=== PATIENT | female | born 1930 | race African-American/Black ===

== ENCOUNTER 2021-04-09 10:23 | Inpatient (IN) | payer MEDICARE, MEDICAID ==
[~2021-04-09] VITALS: Ht 162.6 cm; Wt 59.9 kg
[~2021-04-09 10:23] MED LIST: ATOR40TA70; CARV25TA47; CLOP-31; ESCI10TA; EZET10TA13; FOLI-43; METF-414 PO; OLME1TAB19 PO
[2021-04-09] MEDS ORDERED: ACETAMINOPHEN 325MG TABLET PO ONE (11:15)
[2021-04-09 11:30] LABS: BASOPHILS % 0.8 % (0.0-2.0); EOSINOPHILS % 5.2 % (0.0-5.0); HEMATOCRIT. 32.9 % (36.0-48.0); LYMPHOCYTES % 31.9 % (20.0-50.0); MEAN CORPUSCULAR VOLUME 83.9 fL (81.0-99.0); MEAN PLATELET VOLUME 8.7 fl (7.4-10.4); MONOCYTES % 7.7 % (2.0-8.0); NEUTROPHILS % 54.4 % (40.0-76.0); PLATELET 267 x1000/uL (130-400); RED BLOOD CELL COUNT 3.92 mill/uL (4.2-5.4); RED CELL DISTRIBUTION WIDTH 15.9 % (11.6-14.6)
[2021-04-09] MEDS ORDERED: MORPHINE SULFATE 2 MG/ML CPJ (NOT FOR IM USE) IV ONE (11:30)
[2021-04-09 11:35] LABS: CHLORIDE 105 mEq/L (98-107)
[2021-04-09 11:39] LABS: PROTHROMBIN TIME 10.8 sec (9.6-11.0)
[2021-04-09] MEDS ORDERED: SODIUM CHLORIDE 0.9% 1,000 ML IV NR (11:45)
[2021-04-09 14:10] LABS: CLARITY URINE CLOUDY (CLEAR); COLOR URINE YELLOW (YELLOW); KETONES URINE TRACE (NEGATIVE); LEUKOCYTE ESTERASE URINE NEGATIVE (NEGATIVE); NITRITE URINE NEGATIVE (NEGATIVE); OCCULT BLOOD URINE 2+ (NEGATIVE); PH URINE 8.5 (4.5-8.0); PROTEIN URINE 1+ (NEGATIVE); SPECIFIC GRAVITY URINE 1.011 (1.005-1.030); UROBILINOGEN URINE 0.2 E.U./dL (0.2-1.0)
[2021-04-09] MEDS ORDERED: HYDROCODONE/APAP 7.5/325MG 1 TAB TABLET PO PRN (16:00)
[2021-04-09] MEDS ORDERED: NALOXONE HCL 0.4MG/ML VIAL IV PRN (16:30)
[2021-04-09] MEDS: AMLODIPINE 10MG TABLET PO SCH (16:30)
[2021-04-09] MEDS ORDERED: ATORVASTATIN CALCIUM 20MG TABLET PO SCH (21:00)
[2021-04-09] MEDS ORDERED: MORPHINE SULFATE 2 MG/ML CPJ (NOT FOR IM USE) IV PRN (22:15)
[2021-04-09 22:25] VITALS: BP 173/83
[2021-04-10] VITALS (7 sets, daily range): BP systolic 123–193; BP diastolic 83–97
[2021-04-10] MEDS ORDERED: AMLO5TAB88 PO (00:04)
[2021-04-10] MEDS ORDERED: DONE10TA36 PO (00:04)
[2021-04-10] MEDS ORDERED: SITA100T11 PO (00:04)
[2021-04-10] MEDS ORDERED: XAR15 PO (00:04)
[2021-04-10] MEDS ORDERED: ASPI-1406 PO (00:04)
[2021-04-10] MEDS ORDERED: HYDR12.54 PO (00:04)
[2021-04-10] MEDS ORDERED: FERR325T6 PO (00:04)
[2021-04-10] MEDS ORDERED: CARV3.1242 PO (00:04)
[2021-04-10] MEDS ORDERED: SACU1TAB PO (00:04)
[2021-04-10] MEDS ORDERED: METF-414 PO (00:04)
[2021-04-10] MEDS ORDERED: ATOR10TA69 PO (00:04)
[2021-04-10] MEDS: CARVEDILOL 3.125 MG TABLET PO SCH ×3 (00:12→21:19)
[2021-04-10] MEDS: CLONIDINE 0.1MG TABLET PO PRN ×2 (00:13→23:07)
[2021-04-10 06:59] LABS: BASOPHILS % 0.4 % (0.0-2.0); EOSINOPHILS % 1.3 % (0.0-5.0); HEMATOCRIT. 32.7 % (36.0-48.0); HEMOGLOBIN. 10.8 g/dL (12.0-16.0); LYMPHOCYTES % 17.8 % (20.0-50.0); MEAN CORPUSCULAR HEMOGLOBIN 27.8 pg (28.0-32.0); MEAN CORPUSCULAR VOLUME 84.5 fL (81.0-99.0); MONOCYTES % 10.7 % (2.0-8.0); NEUTROPHILS % 69.8 % (40.0-76.0); PLATELET 244 x1000/uL (130-400); RED BLOOD CELL COUNT 3.87 mill/uL (4.2-5.4); RED CELL DISTRIBUTION WIDTH 15.9 % (11.6-14.6)
[2021-04-10 07:07] LABS: CHLORIDE 107 mEq/L (98-107)
[2021-04-10] MEDS: AMLODIPINE 10MG TABLET PO SCH (09:00)
[2021-04-10] MEDS: HYDROCHLOROTHIAZIDE 12.5MG CAPSULE PO SCH (09:00)
[2021-04-10] MEDS: ATORVASTATIN CALCIUM 20MG TABLET PO SCH (21:19)
[2021-04-11] VITALS: BP 148/82
[2021-04-11 04:00] VITALS: BP 171/99
[2021-04-11] MEDS: CLONIDINE 0.1MG TABLET PO PRN (04:58)
[2021-04-11] MEDS ORDERED: VANCOMYCIN HCL 1 GM/VIAL ONE (07:06)
[2021-04-11] MEDS ORDERED: BACITRACIN 15GM TUBE TOP ONE (07:06)
[2021-04-11] MEDS ORDERED: POLYMYXIN B SULFATE 500000 UNITS/VIAL ONE (07:07)
[2021-04-11] MEDS ORDERED: LIDOCAINE HCL/EPINEPHRINE 1%-EPI 1:100,000 20 ML VIAL ONE (07:07)
[2021-04-11 07:24] LABS: CHLORIDE 110 mEq/L (98-107)
[2021-04-11 07:30] LABS: BASOPHILS % 0.4 % (0.0-2.0); HEMATOCRIT. 29.7 % (36.0-48.0); LYMPHOCYTES % 12.2 % (20.0-50.0); MEAN CORPUSCULAR HEMOGLOBIN 28.3 pg (28.0-32.0); MEAN CORPUSCULAR VOLUME 84.4 fL (81.0-99.0); MEAN PLATELET VOLUME 9.1 fl (7.4-10.4); MONOCYTES % 11.5 % (2.0-8.0); NEUTROPHILS % 73.9 % (40.0-76.0); PLATELET 214 x1000/uL (130-400); RED BLOOD CELL COUNT 3.52 mill/uL (4.2-5.4); RED CELL DISTRIBUTION WIDTH 15.6 % (11.6-14.6)
[2021-04-11] MEDS ORDERED: SUCCINYLCHOLINE CHLORIDE 200MG/10ML IV ONE (07:43)
[2021-04-11] MEDS ORDERED: ONDANSETRON HCL 4MG/2ML INJ ONE (07:43)
[2021-04-11] MEDS ORDERED: GLYCOPYRROLATE 0.2 MG/ML 2ML VIAL ONE (07:43)
[2021-04-11] MEDS ORDERED: PROPOFOL 200MG/20ML VIAL IV ONE (07:43)
[2021-04-11] MEDS ORDERED: METOCLOPRAMIDE HCL 10MG/2ML VIAL ONE (07:43)
[2021-04-11] MEDS ORDERED: MIDAZOLAM HCL 2 MG/2 ML VIAL ONE (07:43)
[2021-04-11] MEDS ORDERED: FENTANYL CITRATE/PF 50MCG/ML 2ML VIAL ONE (07:43)
[2021-04-11] MEDS ORDERED: PHENYLEPHRINE HCL 10 MG/ML 1ML (IV VIAL) IV ONE (08:10)
[2021-04-11] MEDS ORDERED: MEPERIDINE HCL/PF 25MG/ML CPJ IV PRN (08:45)
[2021-04-11] MEDS ORDERED: HYDROMORPHONE HCL/PF 2MG/ML CPJ IV PRN (08:45)
[2021-04-11] MEDS ORDERED: MORPHINE SULFATE 2 MG/ML CPJ (NOT FOR IM USE) IV PRN (08:45)
[2021-04-11] MEDS ORDERED: SODIUM CHLORIDE 0.9% 1,000 ML IV ONE (08:45)
[2021-04-11] MEDS ORDERED: ONDANSETRON HCL 4MG/2ML INJ IV PRN (08:45)
[2021-04-11] MEDS: HYDROCHLOROTHIAZIDE 12.5MG CAPSULE PO SCH (11:05)
[2021-04-11] MEDS: CARVEDILOL 3.125 MG TABLET PO SCH ×2 (11:05→21:16)
[2021-04-11] MEDS: AMLODIPINE 10MG TABLET PO SCH ×2 (11:05→11:30)
[2021-04-11 12:00] VITALS: BP 154/76
[2021-04-11] MEDS ORDERED: CEFAZOLIN SODIUM 1000MG/VIAL IV SCH (14:00)
[2021-04-11] MEDS: APIXABAN 2.5 MG TABLET PO SCH ×2 (14:57→21:16)
[2021-04-11] MEDS: CEFAZOLIN 1000MG PREMIX 50 ML IV SCH ×2 (14:57→21:53)
[2021-04-11] MEDS: DOCUSATE SODIUM 100MG CAPSULE PO SCH (14:58)
[2021-04-11 16:00] VITALS: BP 154/76
[2021-04-11 20:00] VITALS: BP 145/63
[2021-04-11] MEDS: ATORVASTATIN CALCIUM 20MG TABLET PO SCH (21:16)
[2021-04-12] VITALS: BP 148/69
[2021-04-12 04:06] VITALS: BP 135/72
[2021-04-12] MEDS: CEFAZOLIN 1000MG PREMIX 50 ML IV SCH ×3 (05:25→22:03)
[2021-04-12 07:27] LABS: BASOPHILS % 0.5 % (0.0-2.0); EOSINOPHILS % 1.8 % (0.0-5.0); HEMATOCRIT. 27.1 % (36.0-48.0); LYMPHOCYTES % 15.2 % (20.0-50.0); MEAN CORPUSCULAR HEMOGLOBIN 28.1 pg (28.0-32.0); MEAN CORPUSCULAR VOLUME 84.8 fL (81.0-99.0); MEAN PLATELET VOLUME 9.4 fl (7.4-10.4); NEUTROPHILS % 69.5 % (40.0-76.0); PLATELET 191 x1000/uL (130-400); RED CELL DISTRIBUTION WIDTH 15.4 % (11.6-14.6)
[2021-04-12 07:41] LABS: CHLORIDE 110 mEq/L (98-107)
[2021-04-12 08:00] VITALS: BP_SYST 109; BP_SYST 146; BP_DIAS 53; BP_DIAS 79
[2021-04-12] MEDS: APIXABAN 2.5 MG TABLET PO SCH ×2 (09:29→22:02)
[2021-04-12] MEDS: CARVEDILOL 3.125 MG TABLET PO SCH (09:29)
[2021-04-12] MEDS: DOCUSATE SODIUM 100MG CAPSULE PO SCH (09:29)
[2021-04-12] MEDS: HYDROCHLOROTHIAZIDE 12.5MG CAPSULE PO SCH (09:29)
[2021-04-12 12:00] VITALS: BP 139/59
[2021-04-12 16:00] VITALS: BP 146/66
[2021-04-12] MEDS: AMLODIPINE 10MG TABLET PO SCH ×2 (17:00→18:34)
[2021-04-12 20:00] VITALS: BP 137/76
[2021-04-12] MEDS: ATORVASTATIN CALCIUM 20MG TABLET PO SCH (22:02)
[2021-04-12] MEDS: CARVEDILOL 6.25 MG TABLET PO SCH (22:02)
[2021-04-13] VITALS: BP 136/63
[2021-04-13 04:00] VITALS: BP 131/59
[2021-04-13 06:18] LABS: BASOPHILS % 0.5 % (0.0-2.0); EOSINOPHILS % 3.2 % (0.0-5.0); HEMATOCRIT. 26.1 % (36.0-48.0); HEMOGLOBIN. 8.6 g/dL (12.0-16.0); LYMPHOCYTES % 13.6 % (20.0-50.0); MEAN CORPUSCULAR VOLUME 84.8 fL (81.0-99.0); MEAN PLATELET VOLUME 9.6 fl (7.4-10.4); MONOCYTES % 12.9 % (2.0-8.0); NEUTROPHILS % 69.8 % (40.0-76.0); PLATELET 198 x1000/uL (130-400); RED BLOOD CELL COUNT 3.08 mill/uL (4.2-5.4); RED CELL DISTRIBUTION WIDTH 15.3 % (11.6-14.6)
[2021-04-13 06:33] LABS: CHLORIDE 110 mEq/L (98-107)
[2021-04-13] MEDS: CEFAZOLIN 1000MG PREMIX 50 ML IV SCH (06:33)
[2021-04-13 08:05] VITALS: BP 141/78
[2021-04-13] MEDS: AMLODIPINE 10MG TABLET PO SCH ×2 (09:00→17:00)
[2021-04-13] MEDS: CARVEDILOL 6.25 MG TABLET PO SCH (09:00)
[2021-04-13] MEDS: DOCUSATE SODIUM 100MG CAPSULE PO SCH (09:00)
[2021-04-13] MEDS: HYDROCHLOROTHIAZIDE 12.5MG CAPSULE PO SCH (09:00)
[2021-04-13] MEDS: APIXABAN 2.5 MG TABLET PO SCH ×2 (09:00→22:26)
[2021-04-13] MEDS: CLOPIDOGREL 75MG TABLET PO SCH (11:00)
[2021-04-13 11:43] VITALS: BP 129/61
[2021-04-13 16:15] VITALS: BP 140/68
[2021-04-13 20:00] VITALS: BP 150/62
[2021-04-13] MEDS: CARVEDILOL 12.5MG TABLET PO SCH (22:25)
[2021-04-13] MEDS: ATORVASTATIN CALCIUM 20MG TABLET PO SCH (22:26)
[2021-04-14 04:00] VITALS: BP 137/78
[2021-04-14 07:12] LABS: BASOPHILS % 0.5 % (0.0-2.0); EOSINOPHILS % 4.5 % (0.0-5.0); HEMATOCRIT. 24.9 % (36.0-48.0); HEMOGLOBIN. 8.2 g/dL (12.0-16.0); LYMPHOCYTES % 17.6 % (20.0-50.0); MEAN CORPUSCULAR HEMOGLOBIN 27.9 pg (28.0-32.0); MEAN CORPUSCULAR VOLUME 85.1 fL (81.0-99.0); MEAN PLATELET VOLUME 9.2 fl (7.4-10.4); MONOCYTES % 13.9 % (2.0-8.0); NEUTROPHILS % 63.5 % (40.0-76.0); PLATELET 220 x1000/uL (130-400); RED BLOOD CELL COUNT 2.92 mill/uL (4.2-5.4); RED CELL DISTRIBUTION WIDTH 15.6 % (11.6-14.6)
[2021-04-14 07:42] LABS: CHLORIDE 107 mEq/L (98-107)
[2021-04-14 08:08] VITALS: BP 135/72
[2021-04-14] MEDS: AMLODIPINE 10MG TABLET PO SCH ×2 (09:06→17:44)
[2021-04-14] MEDS: DOCUSATE SODIUM 100MG CAPSULE PO SCH (09:06)
[2021-04-14] MEDS: CARVEDILOL 12.5MG TABLET PO SCH (09:06)
[2021-04-14] MEDS: APIXABAN 2.5 MG TABLET PO SCH (09:06)
[2021-04-14] MEDS: HYDROCHLOROTHIAZIDE 12.5MG CAPSULE PO SCH (09:06)
[2021-04-14] MEDS: CLOPIDOGREL 75MG TABLET PO SCH (09:06)
[2021-04-14 12:33] VITALS: BP 142/58
[2021-04-14 16:15] VITALS: BP 140/60
[2021-04-14 16:58] VITALS: BP 140/60
== END 2021-04-14 19:40 | DRG 481 ==
LOC: ER 10:49 → ENRESERV 19:26 → CANRESERV 19:26 → EDBEDREQTM 20:33 → EDBEDREQSVC 20:33 → EDBEDREQTM 20:34 → ENRESERV 21:19 → 6WST 22:20
PROVIDERS: ADMIT Family Medicine Adult Medicine; ATTEND Family Medicine Adult Medicine
PROC: 0QS704Z Reposition Left Upper Femur with Internal Fixation Device, Open Approach (ICD-10-PCS; principal; 2021-04-11)
DX: S72.142A Displaced intertrochanteric fracture of left femur, initial encounter for closed fracture (principal); I48.20 Chronic atrial fibrillation, unspecified; W01.0XXA Fall on same level from slipping, tripping and stumbling without subsequent striking against object, initial encounter; I50.9 Heart failure, unspecified; E11.9 Type 2 diabetes mellitus without complications; E78.5 Hyperlipidemia, unspecified; F03.90 Unspecified dementia, unspecified severity, without behavioral disturbance, psychotic disturbance, mood disturbance, and anxiety; Z20.822 Contact with and (suspected) exposure to COVID-19; I11.0 Hypertensive heart disease with heart failure; I25.10 Atherosclerotic heart disease of native coronary artery without angina pectoris; I25.5 Ischemic cardiomyopathy; Z79.01 Long term (current) use of anticoagulants; Z79.899 Other long term (current) drug therapy; Z95.1 Presence of aortocoronary bypass graft; Z79.84 Long term (current) use of oral hypoglycemic drugs; Y93.89 Activity, other specified; Y92.89 Other specified places as the place of occurrence of the external cause; Y99.8 Other external cause status
CPT/HCPCS: 36415; 71045; 73502; 73552; 73700; 80048; 80053; 80061; 81003; 82962; 83036; 83735; 84484; 85025; 86850; 86900; 87426; 93005; 93306; 97162; 97530; 99285; C1713; C1893; J0330; J0690; J2250; J2270; J2370; J2405; J2704; J2765; J3010; J3370; J3490